=== PATIENT | male | born 1985 | race Caucasian/White ===

== ENCOUNTER 2021-10-11 08:01 | Emergency (ER) | payer BC, SELFPAY ==
--- NOTE | ~2021-10-11 | XR_ITS ---
EXAMINATION: CT abdomen pelvis wo con, XR abdomen/kub 1V DATE: 10/11/2021 08:31 (accession [id number]), 10/11/2021 08:47 (accession [id number]) INDICATION: Left-sided flank pain TECHNIQUE: Computed tomography (CT) of the abdomen and pelvis was performed without intravenous contr ast. The dose-length product was 691.47 mGy-cm. Automated exposure control and iterative reconstructi on technique were employed. KUB. COMPARISON: None. FINDINGS: Lung bases are unremarkable. No significant pleural or pericardial effusion. The liver, spl een, pancreas, adrenal glands are unremarkable. There is a 5 mm distal left ureteral stone near the U VJ with mild left hydronephrosis. There is nonobstructing right nephrolithiasis. Gallbladder is present. Nonobstructive bowel gas pattern. Mild lumbar spondylosis. No free air or gennaro e fluid. No acute osseous abnormality. KUB: Distal left ureteral stone and right renal stone are visualized on KUB. Nonobstructive bowel gas pattern. IMPRESSION: 1. Distal left ureteral stone near the UVJ measuring 5 mm. Mild left hydronephrosis. 2: Nonobstructing right nephrolithiasis. Reviewed, dictated and finalized at location [facility] IMPRESSION: 1. Distal left ureteral stone near the UVJ measuring 5 mm. Mild left hydronephr osis. 2: Nonobstructing right nephrolithiasis.
[2021-10-11 08:02] VITALS: BP 150/102; PULSE 119; RESP 20; TEMP 36.6; O2SAT 100
[2021-10-11] MEDS: MORPHINE SULFATE (*CRX) 4 MG/ML INJ IV PUSH ×2 (08:14→09:13)
[2021-10-11 08:15] LABS: Basophils Absolute Auto 0.1 K/mm3 (0.0-0.1); Basophils Percent Auto 1.3 % (0.2-1.2); Eosinophils Absolute Auto 0.1 K/mm3 (0-0.3); Eosinophils Percent Auto 1.7 % (0-4.4); Hematocrit 51.3 % (42.0-52.0); Hemoglobin 17.4 g/dL (14.0-18.0); Immature Granulocyte Absolute 0.02 K/mm3 (0.00-0.031); Immature Granulocyte Percent A 0.3 % (0-0.5); Lymphocytes Absolute Auto 1.63 K/mm3 (0.9-3.2); Mean Corpuscular HGB Conc 33.9 g/dl (32-36); Mean Corpuscular Hemoglobin 29.8 pg (26-34); Mean Platelet Volume 9.1 fl (7.4-10.4); Monocytes Absolute Auto 0.8 K/mm3 (0.1-0.6); Monocytes Percent Auto 10.1 % (2.6-8.5); Neutrophils Absolute Auto 5.1 K/mm3 (1.3-6.7); Neutrophils Percent Auto 65.6 % (45.5-73.1); Platelet Count Result 278 k/mm3 (150-375); Red Blood Count 5.83 M/mm3 (4.6-6.20); Red Cell Distribution Width 12.8 % (11.5-14.5); White Blood Count 7.8 K/mm3 (4.5-10.0)
[2021-10-11] MEDS: SODIUM CHLORIDE 0.9% IV 1,000 ML 999 ML IV CONT (08:15)
--- NOTE | 2021-10-11 08:17 | PC.NURSE ---
Patient states he cannot urinate at this time.
--- NOTE | 2021-10-11 08:21 | PC.NURSE ---
Patient to CT
[2021-10-11 08:34] LABS: Alanine Aminotransferase 15 U/L (4-50); Albumin Level 4.6 g/dL (3.5-5.1); Alkaline Phosphatase 71 U/L (38-126); Anion Gap 9 mmol/L (8-16); Aspartate Amino Transferase 23 U/L (17-59); Bilirubin,Total 0.6 mg/dL (0.2-1.3); Blood Urea Nitrogen 14 mg/dL (9-20); Calcium 9.7 mg/dL (8.4-10.2); Carbon Dioxide 23 mmol/L (22-30); Chloride 107 mmol/L (98-107); Estimated CRCL calculation 98 ml/min; Estimated Glomerular Filt Rate > 60; Glucose 108 mg/dL (65-110); Lipase 100 U/L (23-300); Potassium 4.4 mmol/L (3.4-5.0); Sodium 139 mmol/L (137-145)
[2021-10-11] MEDS: KETOROLAC 30 MG/ML VIAL (*BKC) IV PUSH (08:38)
[2021-10-11 08:44] VITALS: TEMP 36.6
--- NOTE | 2021-10-11 09:02 | PC.NURSE ---
Patient still states he cannot urinate.
[2021-10-11 09:08] VITALS: TEMP 36.6
--- NOTE | 2021-10-11 09:25 | PC.NURSE ---
pt. refuses to attempt to void; informed pt. I would get a urinary catheter pt. replied I ain't pissin in no catheter . Pt. aware urine specimen needed for disposition.
[2021-10-11] MEDS: TAMSULOSIN HCL 0.4 MG CAPSULE PO (09:38)
[2021-10-11 09:42] LABS: Add Urine Microscopic? YES; Appearance Urine Clear (Clear); Bilirubin Urine Negative (Negative); Blood Urine 2+ (Negative); Color Urine Yellow (Yellow); Glucose Urine UA Negative (Negative); Ketones Urine Negative (Negative); Leukocyte Esterase Ur Negative LEU/UL (Negative); Mucus Urine Rare /lpf; Nitrate Urine Negative (Negative); Protein Urine Negative (Negative); RBC Urine >75 /hpf (0-2); Specific Grav Ur 1.025 (1.001-1.035); WBC Urine 0-3 /hpf
[2021-10-11 09:43] VITALS: TEMP 36.6
--- NOTE | 2021-10-11 10:14 | ED.GENADULT ---
HPI - General Adult General Chief complaint: Abdominal Pain Stated complaint: Flank Pain Time Seen by Provider: 10/11/21 08:03 Source: RN notes reviewed History of Present Illness HPI narrative: Patient presents emergency department from home for left-sided abdominal pain. Patient states has been having left flank pain for approximately 1 week became more severe today. The pain is located in left lower abdomen and radiates around the left flank described as sharp and stabbing. Patient states he had a history of numerous kidney stones before in the past and this feels similar to prior he denies any fevers or chills chest pain shortness of breath vomiting diarrhea or any other symptoms states he not taking medication for pain at home Related Data Allergies Allergy/AdvReac Type Severity Reaction Status Date / Time No Known Allergies Allergy Verified 10/11/21 08:05 Review of Systems Review of Systems: Gen.: Denies fevers or chills ENT: Denies congestion Respiratory: Denies shortness of breath or cough CV: Denies chest pain or palpitations GI: See HPI denies burning, urgency, frequency or hematuria Musculoskeletal: Denies back pain or muscle pain Neuro: Denies numbness, tingling, weakness or focal weakness Skin: Denies rash Except as documented, all other systems reviewed and negative [facility] Past Medical History Medical History (Updated 10/11/21 @ 10:16 by Michael Pierson DO) Kidney stone on left side Social History Social History (Updated 10/11/21 @ 10:16 by Michael Pierson DO) Smoking status: Never smoker Exam Narrative: APPEARANCE: No acute distress, nontoxic, resting in bed EYES: EOMI HEENT: Normocephalic, atraumatic, OMM RESPIRATORY: No respiratory distress Clear to auscultation bilaterally with no rhonchi wheezing or rales. CARDIOVASCULAR: Regular rate and rhythm without murmurs rubs or gallops. ABDOMINAL: Soft, nondistended tender palpation left lower quadrant left lower quadrant no tenderness right upper quadrant right lower quadrant no rebound or guarding MUSCULOSKELETAl: Moves all extremities. No clubbing, cyanosis or edema. NEURO: Awake and alert. Following commands, speech normal, no focal deficits SKIN:: Warm, dry. No rashes lesions or abrasions PSYCHIATRIC: Normal affect/mood, Course Course Emergency Course: Discussed with patient results of workup and diagnosis. Discussed need for follow-up with primary care, proper use of medication, and reasons to return to the emergency department. Patient understands and agrees to current treatment plan Patient states he cannot take hydrocodone and normally receives Percocets Vital Signs Vital signs: Vital Signs Temperature 97.8 F 10/11/21 08:02 Pulse Rate 119 H 10/11/21 08:02 Respiratory Rate 20 10/11/21 08:02 Blood Pressure 150/102 H 10/11/21 08:02 Pulse Oximetry 100 10/11/21 08:02 Temperature 97.8 F 10/11/21 09:43 Pulse Rate 111 H 10/11/21 10:28 Respiratory Rate 16 10/11/21 10:28 Blood Pressure 144/97 H 10/11/21 10:28 Pulse Oximetry 97 10/11/21 10:28 Medical Decision Making MDM Narrative Medical decision making narrative: Patient's abdomen is soft without significant pain or signs of surgical abdomen on serial exams. Lab and x-ray evaluations are reviewed and patient is felt to be a reasonable candidate for outpatient management. Patient was instructed as to limitations of x-ray and laboratory evaluation and encouraged to return to ED or primary physician for repeat exam in 12 hours if continued or worsening pain Vital Signs Vital Signs: Vital Signs Temperature 97.8 F 10/11/21 08:02 Pulse Rate 119 H 10/11/21 08:02 Respiratory Rate 20 10/11/21 08:02 Blood Pressure 150/102 H 10/11/21 08:02 Pulse Oximetry 100 10/11/21 08:02 Temperature 97.8 F 10/11/21 09:43 Pulse Rate 111 H 10/11/21 10:28 Respiratory Rate 16 10/11/21 10:28 Blood Pressure 144/97 H 10/11/21 10:28 Pulse Oximetry 97
[2021-10-11] MEDS: oxyCODONE/ACETAMINOPHEN (*CRX) 5-325 MG TABLET 1 TABLET PO (10:27)
[2021-10-11 10:28] VITALS: BP 144/97; PULSE 111; RESP 16; O2SAT 97
[2021-10-11 10:42] VITALS: TEMP 36.6
== END 2021-10-11 10:43 | disposition home or self-care (01) ==
PROVIDERS: Emergency Provider Emergency Medicine
DX: N13.2 Hydronephrosis with renal and ureteral calculous obstruction (principal); Z87.442 Personal history of urinary calculi
CPT/HCPCS: 36415; 74018; 74176; 80053; 81001; 83690; 85025; 96361; 96374; 96375; 96376; 99284; A9270; J1885; J2270; J7030